=== PATIENT | female | born 1960 | race Asian ===

== ENCOUNTER 2022-12-06 15:43 | Outpatient (CLI) | payer OTHER ==
--- NOTE | 2022-12-06 16:35 | SLEEP CARE CONSULTATION ---
Information from patient questionnaire entered by Kiera Albarado. I have reviewed and concur with the information entered by Kiera Albarado. This document represents the service I personally performed and the decisions made by me, Kelsy Baker ARNP. History of Present Illness Service Date and Time: 12/06/2022 1543 Reason for Visit: New patient Chief Complaint: reports: Insomnia, Unrefreshed sleep, Snoring, Excessive daytime sleepiness, Fatigue Date of Onset: 5+YRS Usual bedtime: 11 PM-12 AM Time it takes to fall asleep: 30-60 MIN Snores at night: Yes Observed to quit breathing while asleep: No Sleeps alone due to snoring: No Number of times waking at night: 1-2, sometimes cannot go back to sleep Reasons for waking at night: reports: Bathroom, Other (has woke up with throat sore, dry/inflamed feeling). denies: Choking, Snoring, Gasping for air Toss, Turn, or Twitch while sleeping: No (UNSURE) Recalls having dreams: No (very rarely) Usually gets out of bed at: 6-5AM WEEKDAYS 9-10 WEEKENDS Feels refreshed in the morning: No Morning headache: Yes (every morning if no excedrin; RESOLVES WHEN TAKES EXCEDRIN MIGRAINE ) Sleepy or fatigued during the day: Yes Ever fallen asleep while driving: No Takes day naps: Yes (daily for 1.5 hours during week; longer on weekends) Dreams during day naps: No Prior sleep studies: No Additional HPI information: I had the pleasure of seeing JUSTINE CHOWDHURY today regarding the possibility of her having a sleep disorder. Her current complaints are insomnia, unrefreshed sleep, snoring, fatigue and excessive daytime sleepiness. She does not feel she gets enough sleep. She has a hard time going to sleep and staying asleep. She has been told that snores in the past but has been sleeping alone for a long time. Her children will tell her that she still snores when she if staying in same house with them while sleeping. She rarely wakes up feeling refreshed. She states if she does not take Excedrin migraine medication she will wake up with headache in the morning. She has been taking a supplement called Sleep that does seem to help her sleep for longer periods but she has not been taking it for the last month. 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 - Parasomnia Symptoms Ever been unable to move upon waking from sleep: No Walks in sleep: No Talks in sleep: No (UNSURE) Ever acted out dreams in sleep: No (UNSURE) Ever felt weak in the knees when startled or emotional: No Bothered by creepy, crawly, restless sensations in legs: Yes (usually in evenings or bedtime; either right hip or sofia legs) Problems with memory or concentration: Yes (concentration mostly, "can't focus" with too much on mind) Subjective Initial [place] Sleepiness Scale score: 10 (12/05/22) Past Medical History Past Medical History: reports: Arthritis, Anemia, GERD, Other (psoriasis; esophageal hernia (new dx); borderline diabetes) Social History 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 Patient is and lives in [place]. Have you smoked in the past 12 months: Yes Cigarettes per day (20/pack): 7 Years of smokin Smoking Pack Years: 4.5 Alcohol use: No Caffeine use: Yes Caffeine amount and frequency: 1 32OZ DAILY Family History Family history of sleep disordered breathing: Yes Family Hx Sleep Apnea: Father: Snoring, Sibling: Snoring, Grandparent: Snoring Allergies and Home Medications Known drug allergies: No Drug allergies reviewed: Yes (NKDA) Home medication list reviewed: Yes Allergy and home medication list: Medications: Meloxicam (will be changing to Stelara) Prilosec Zyrtec or Vicky for allergies Calcium Review of Systems Cardiovascular: reports: high blood pressure, palpitations Respiratory: reports: shortness of breath Gastrointestinal: reports: heartburn, difficulty swallowing Neurological: reports: headaches, head trauma (concussions as child) Psychiatric: reports: anxiety, depression Ear/Nose/Throat: reports: hoarseness, wisdom teeth removed. denies: tonsillectomy Endocrine: reports: sluggishness Musculoskeletal: reports: joint pain, neck pain Physical Exam Vital signs obtained and entered by: KIERA Lewis MA Blood Pressure: 132/70 (LEFT ARM) Cuff size: regular Heart Rate: 98 O2 Saturation: 97 Height: 5 ft 3 in Weight: 149 lb 3.2 oz Body Mass Index: 26.4 BMI Classification: Overweight Neck circumference: 13.75 Mouth and throat: narrow oropharynx Soft palate: long Hard palate: normal Uvula: normal Uvula visualization: 25% Mallampati Class III Tongue: enlarged in size with teeth osuna on lateral edges Tonsils: 1+ Neck: normal w/o lymphadenopathy or thyromegaly Heart: regular rate and rhythm Lungs: clear bilaterally Impression and Plan 1. Suspected Obstructive Sleep Apnea-Hypopnea Syndrome, as suggested by a history of irregular snoring, morning headache, unrefreshed sleep, cognitive impairment, and excessive daytime sleepiness. Narrow oropharynx and obesity are common predisposing factors for obstructive sleep apnea-hypopnea syndrome. I recommend proceeding to polysomnography to confirm the diagnosis and to assess severity. If the patient has significant sleep disordered breathing, a manual CPAP titration study will also be performed to find the optimal treatment pressure. I informed the patient of what the sleep studies involve and after some discussion, obtained agreement to proceed. The pathophysiology of obstructive sleep apnea-hypopnea syndrome was discussed with the patient and health risks of cardiovascular and cerebrovascular disease if not treated. Risks of drowsy driving discussed in detail and patient advised to avoid long distance driving and to lathe puller at the first sign of drowsiness. Patient agreed to plan. * Schedule polysomnography * Avoid long distance driving or driving when feeling sleepy. * Avoid alcohol, sedative and muscle relaxant around bedtime. * Attempt to lose weight. * Review instructions provided by trained office staff on how to prepare for the sleep study. * Return for follow-up after sleep study completed. Counseling Topics: Weight loss health impact Visit Type: In Office Time Spent with Patient (minutes): 31 Provider Statement: I spent 100% of the Face to Face Visit with the patient with greater than 50% spent counseling the patient and coordination of care.
[2022-12-06 18:02] VITALS: BP 132/70
== END 2022-12-06 15:44 | disposition home or self-care (01) ==
LOC: EDSEX 15:43 → SC 15:43
PROVIDERS: ATTEND Nurse Practitioner Family
DX: R06.83 Snoring (principal); R51.9 Headache, unspecified; G47.8 Other sleep disorders; R41.89 Other symptoms and signs involving cognitive functions and awareness; G47.10 Hypersomnia, unspecified; F17.200 Nicotine dependence, unspecified, uncomplicated
CPT/HCPCS: 99203; 99212

== ENCOUNTER 2023-01-10 14:55 | Outpatient (CLI) | payer OTHER | END 2023-01-10 14:56 | disposition home or self-care (01) | LOC: SC 14:55 | PROVIDERS: ATTEND Nurse Practitioner Family | DX: G47.33 Obstructive sleep apnea (adult) (pediatric) (principal); R09.02 Hypoxemia; E66.3 Overweight; Z68.26 Body mass index [BMI] 26.0-26.9, adult | CPT/HCPCS: 95806 ==

== ENCOUNTER 2023-01-17 12:51 | Outpatient (CLI) | payer OTHER ==
--- NOTE | 2023-01-17 13:16 | SLEEP CARE CONSULTATION ---
Information from patient questionnaire entered by Kiera Albarado. I have reviewed and concur with the information entered by Kiera Albarado. This document represents the service I personally performed and the decisions made by , Kelsy Baker ARNP. History of Present Illness Service Date and Time: 01/17/2023 1251 Initial [place] Sleepiness Scale score: 10 (12/05/22) Current [place] Sleepiness Scale score: 10 (01/17/23) Additional HPI information: JUSTINE CHOWDHURY returns for follow up and results of the recently performed home sleep study. I explained the pathophysiology behind obstructive sleep apnea. We then spent quite a bit of time discussing different treatment options. For mild obstructive sleep apnea, surgery and oral appliance are alternatives to nasal CPAP therapy but in moderate or severe cases, nasal CPAP is the most effective and reliable treatment. I reviewed the impact of weight changes on sleep apnea and strongly recommended losing weight. I recommended CPAP therapy to treat her sleep apnea because while it is mild for her average, she is severe when supine. I explained how CPAP machine works and what to expect when using the machine. Patient was cautioned about risks of drowsy driving until sleepiness symptoms resolve. Sleep Study - Results Type of Sleep Study: Home sleep study (COMPLETED 01/10/23) Prior sleep studies: No Polysomnography/Home Sleep Study results: Physician Impression: The quality of the study is good. The length of the study is adequate (> 240 minutes). Please also see the tabulated and graphic data. 1. Obstructive Sleep Apnea-Hypopnea (ICD-10 G47.33), mild, with an AHI of 11.6/hr and prudencio SaO2 of 84%. During the study, the patient had 14 apneas (14 obstructive, 0 central, 0 mixed) and 69 hypopneas. The longest episode lasted 115.5 seconds. The respiratory events occurred more frequently during supine sleep (supine AHI was 34.9 and non-supine, 5.17). 2. Hypoxemia (ICD-10 R09.02), mild, with the lowest oxygen saturation of 84 % and 20.7 minutes with SaO2 under 90%. Baseline oxygen saturation was normal (Average oxygen saturation was 93%). Allergies and Home Medications Known drug allergies: No Drug allergies reviewed: Yes Home medication list reviewed: Yes (no changes) Allergy and home medication list: Allergies No Known Drug Allergies Allergy (Verified 01/16/23 13:35) Review of Systems Review of systems same as previous: Yes (no changes) Physical Exam Vital signs obtained and entered by: KIERA Lewis MA Blood Pressure: 110/62 (LEFT ARM) Cuff size: regular Heart Rate: 86 O2 Saturation: 97 Height: 5 ft 3 in Weight: 148 lb 9.6 oz Body Mass Index: 26.3 BMI Classification: Overweight Impression and Plan 1. Obstructive Sleep Apnea-Hypopnea Syndrome, mild, with lowest oxygen saturation of 84%. Obviously this is the cause of the patients symptoms of unrefreshed sleep, and excessive daytime sleepiness. Positive pressure therapy could benefit gastric reflux. I recommended CPAP therapy but patient would like to think about it before starting any therapy. Since patients apnea is primarily in supine position, patient advised to try positional therapy until she is able to try different therapy because her non-supine AHI is 5.17. and she agreed with plan. She is also advised to lose weight as this will reduce snoring and apnea. Follow up will be scheduled once she decides up choice of therapy. 2. Hypoxemia, mild, with a prudencio oxygen saturation of 84% and 20.7 minutes spent under 90%. Her baseline oxygen saturation was normal with an average oxygen saturation of 93%. * Positional therapy while thinking about choice of therapy * Attempt to lose weight. * Avoid supine sleep * Return will be determined once she chooses therapy. Counseling Topics: Sleeping position, Weight loss health impact Visit Type: In Office Time Spent with Patient (minutes): 20 Provider Statement: I spent 100% of the Face to Face Visit with the patient with greater than 50% spent counseling the patient and coordination of care.
[2023-01-17 13:17] VITALS: BP 110/62
== END 2023-01-17 12:52 | disposition home or self-care (01) ==
LOC: SC 12:51
PROVIDERS: ATTEND Nurse Practitioner Family
DX: G47.33 Obstructive sleep apnea (adult) (pediatric) (principal); R09.02 Hypoxemia; E66.3 Overweight; Z68.26 Body mass index [BMI] 26.0-26.9, adult
CPT/HCPCS: 99212; 99213